=== PATIENT | female | born 1990 | race Caucasian/White ===

== ENCOUNTER 2020-11-29 15:02 | Emergency (ER) | payer BC ==
[~2020-11-29] VITALS: Ht 167.6 cm; Wt 95.3 kg
[2020-11-29 15:10] VITALS: Ht 167.6 cm; Wt 95.3 kg
[2020-11-29 16:12] LABS: BASOPHIL % 0.6 % (0.2-1.3); PLATELET COUNT 398 x10^3mcL (179-408)
[2020-11-29 16:14] LABS: RED CELL DISTRIBUTION WIDTH 15.3 % (12.3-17.7)
[2020-11-29 16:27] LABS: CALCIUM 9.7 mg/dL (8.5-10.1); CARBON DIOXIDE 28.8 mmol/L (21-32); CHLORIDE SERUM 103 mmol/L (98-107); CREATININE SERUM 0.7 mg/dL (0.6-1.0); GFR1 > 60 mL/min; GLUCOSE SERUM 85 mg/dL (74-106); POTASSIUM SERUM 3.9 mmol/L (3.5-5.1); SODIUM SERUM 137 mmol/L (136-145)
[2020-11-29 16:40] LABS: ALKALINE PHOSPHATASE 53 U/L (46-116); ALT/SGPT 48 U/L (14-59); AST/SGOT 22 U/L (15-37); BILIRUBIN TOTAL 0.2 mg/dL (0.20-1.00); TOTAL PROTEIN, SERUM 8.1 g/dL (6.4-8.2)
[2020-11-29 16:55] LABS: ALBUMIN 3.3 g/dL (3.4-5.0)
[2020-11-29 17:18] VITALS: BP 100/63
== END 2020-11-29 17:18 | disposition home or self-care (01) ==
LOC: ED 15:02
PROVIDERS: Emergency Medicine
DX: N39.0 Urinary tract infection, site not specified (principal); Z11.3 Encounter for screening for infections with a predominantly sexual mode of transmission
CPT/HCPCS: 87491; 87591; J0696; J7030